=== PATIENT | female | born 1970 | race Caucasian/White ===

== ENCOUNTER 2017-04-30 04:55 | Inpatient (IN) | payer OTHER ==
[~2017-04-30] VITALS: Ht 177.8 cm; Wt 95.4 kg
[~2017-04-30 04:55] MED LIST: ATVUNK PO; BSP5 PO; CYAN3INJ SQ; LTHSR/300 PO; [UNRECOGNIZED DRUG - OTHER]
[2017-04-30] MEDS ORDERED: DiphenhydrAMINE HCL 50 MG/ML VIAL IV STA (05:21)
[2017-04-30] MEDS ORDERED: PROCHLORPERAZINE 5 MG/ML 2 ML VIAL IV STA (05:21)
[2017-04-30] MEDS ORDERED: SODIUM CHLORIDE 0.9% 1000ML 1,000 ML IV ONE (05:30)
[2017-04-30] MEDS ORDERED: PROCHLORPERAZINE 5 MG/ML 2 ML VIAL ONE (05:36)
[2017-04-30] MEDS ORDERED: DiphenhydrAMINE HCL 50 MG/ML VIAL ONE (05:36)
[2017-04-30] MEDS ORDERED: CYNI1000 PO (05:53)
[2017-04-30] MEDS ORDERED: BUSP-8 PO (05:53)
[2017-04-30] MEDS ORDERED: BUPR-83 PO (05:54)
[2017-04-30] MEDS ORDERED: GABA-113 PO (05:54)
[2017-04-30 06:11] LABS: BASO % 0.3 %; BASO ABS # 0.02 K/uL (0-0.2); COMPLETE YES; EOS % 0.1 %; IG% 0.3 %; LYMPH % 4.9 %; LYMPH ABS # 0.36 K/uL (1.2-3.4); MEAN CELL VOLUME 89.8 fL (80-100); MEAN CORPUSCULAR HEMOGLOBIN 30.2 pg (25-34); MEAN CORPUSCULAR HGB CONC 33.6 g/dl (32-36); MEAN PLATELET VOLUME 10.2 fL (7.4-10.4); NEUT % 90.4 %; PLATELET COUNT 260 K/uL (130-400); WHITE BLOOD COUNT 7.34 K/uL (4.8-10.8)
--- NOTE | 2017-04-30 06:28 | EMERGENCY ROOM VISIT NOTE ---
ED Visit Note First contact with patient: 05:06 I did evaluate and examine this patient myself. I did guide management for the patient. I agree with the APC's assessment as discussed. Please see the APC's dictation for further details. I did independently review the CT scan of the abdomen and pelvis and blood work.
[2017-04-30 06:30] LABS: CALCIUM 8.6 mg/dl (8.5-10.1); CREATININE 0.88 mg/dl (0.60-1.20); POTASSIUM 2.9 mmol/L (3.5-5.1)
[2017-04-30 06:33] LABS: ALB/GLOB RATIO 0.6 (0.9-2)
[2017-04-30] MEDS ORDERED: POTASSIUM CHLORIDE 10 MEQ / 100ML WTR IV STA (06:36)
--- NOTE | 2017-04-30 07:16 | DIAGNOSTIC IMAGING REPORT ---
CT SCAN OF THE ABDOMEN AND PELVIS WITHOUT CONTRAST CLINICAL HISTORY: Severe abdominal pain. Nausea. Vomiting. COMPARISON STUDY: No previous studies for comparison. TECHNIQUE: CT scan of the abdomen and pelvis was performed from the lung bases to the proximal femurs. Images are reviewed in the axial, sagittal, and coronal planes. IV contrast was not administered for this examination. A dose lowering technique was utilized adhering to the principles of ALARA. CT DOSE: 805.78 mGy.cm FINDINGS: Lower chest: There are postsurgical changes relating to the stomach Liver: The unenhanced liver is normal in size, contour, and attenuation. There is no intrahepatic biliary ductal dilatation. Gallbladder: Cholelithiasis Spleen: The spleen is mildly enlarged measuring 12 cm Pancreas: Unremarkable. Adrenal glands: Unremarkable. Kidneys: No renal, ureteral, or bladder calculi are visualized. Each kidney demonstrates an extrarenal pelvis. Bowel: There are no transition zones indicate bowel obstruction. There is no acute diverticulitis. There is no evidence of acute appendicitis. Peritoneum: There is trace free fluid in the pelvis likely physiologic no free air is visualized. There are several fat-containing ventral hernias. Vasculature: The abdominal aorta is normal in course and caliber. Adenopathy: None. Pelvic viscera: The bladder, and pelvic viscera are unremarkable. Skeletal structures: No destructive osseous lesions are seen. IMPRESSION: 1. Mild splenomegaly 2. No renal, ureteral, or bladder calculi identified 3. No evidence of bowel obstruction. No evidence of free air 4. No evidence of acute appendicitis. No evidence of acute diverticulitis 5. Cholelithiasis 6. Fat-containing ventral hernias 7. Postsurgical changes of a gastric bypass and Babs-en-Y anastomosis Electronically signed by: Handy Dumas M.D. 04/30/2017 7:15 AM Dictated Date/Time: 04/30/2017 6:42 AM
--- NOTE | 2017-04-30 07:21 | EMERGENCY ROOM VISIT NOTE ---
History First contact with patient: 05:06 Chief Complaint: ABDOMINAL PAIN Stated Complaint: ABDOMINAL PAIN Nursing Triage Summary: Abd pain. Dry heeves. History of Present Illness The patient is a 46 year old female who presents to the Emergency Room via ALS with complaints of abdominal pain and dry heaving. The patient has a reported history of gastric bypass. She evidently ate food that was high in fat last night and has developed belly pain with belching. Because of her gastric bypass she does not vomit. She has a lot of gas pain and rates her discomfort a 10/10. The pain is generalized and not in a distinct location. She did have an ultrasound of her gallbladder performed at [facility] roughly 3 months ago that was unremarkable. The patient has not had anything over-the- counter for her symptoms. Review of Systems More than 10 systems were reviewed and otherwise negative with the exception of history of present illness. Past Medical/Surgical History Past medical history of bipolar disorder, migraines, neuropathy, gastric bypass in May 2002 Family History Family history of cardiac disease Social History Smoking Status: Never Smoker Current/Historical Medications Scheduled Bupropion (Wellbutrin), 1 TAB PO BID Buspirone Hcl (Buspirone Hcl), 10 MG PO TID Cyanocobalamin (Cyanocobalamin), 1,000 MCG PO MONTHLY Gabapentin (Neurontin), 1 CAP PO TID Allergies Coded Allergies: No Known Allergies (Verified , NONE, 04/30/17) Physical Exam Vital Signs Date Time Temp Pulse Resp B/P (MAP) Pulse Ox O2 Delivery O2 Flow Rate FiO2 04/30/17 06:33 36.5 92 124/79 99 Room Air 04/30/17 05:01 36.6 70 24 124/72 100 Room Air Physical Exam VITALS: Vitals are noted on the nurse's note and reviewed by myself. Vital signs stable. GENERAL: Ill-appearing female who is moaning in pain and is mildly cooperative with examination due to actively dry heaving HEART: Regular rate and rhythm without murmurs gallops or rubs. LUNGS: Clear to auscultation bilaterally without wheezes, rales or rhonchi. No retractions or accessory muscle use. ABDOMEN: Positive normal bowel sounds x 4. Soft with diffuse tenderness. No distinct point tenderness was appreciated MUSCULOSKELETAL: No muscle atrophy, erythema, or edema noted. Full range of motion without joint tenderness in all extremities. Medical Decision & Procedures ER Provider Diagnostic Interpretation: Preliminary Findings Only See Final Report For Complete Findings CT ABDOMEN & PELVIS: Cholelithiasis-numerous tiny calcified gallstone sitting dependently within a distended gallbladder. No pericholecystic inflammatory changes. Status post remote gastric bypass surgery. No acute complications. Prominent left greater than right extrarenal pelvises. No nephrolithiasis, urolithiasis or hydronephrosis bilaterally. Small amount of stool in the rectum without inflammatory change. No acute inflammatory process or bowel obstruction. Normal appendix. Small midline supraumbilical ventral hernia containing omental fat. Just inferiorly there is also a widemouthed supraumbilical hernia. Very trace free fluid adjacent to the right aspect of the uterus may be physiologic. Laboratory Results 04/30/17 05:55 Red Blood Count 4.90, Mean Corpuscular Volume 89.8, Mean Corpuscular Hemoglobin 30.2, Mean Corpuscular Hemoglobin Concent 33.6, Mean Platelet Volume 10.2, Neutrophils (%) (Auto) 90.4, Lymphocytes (%) (Auto) 4.9, Monocytes (%) (Auto) 4.0, Eosinophils (%) (Auto) 0.1, Basophils (%) (Auto) 0.3, Neutrophils # (Auto) 6.64, Lymphocytes # (Auto) 0.36, Monocytes # (Auto) 0.29, Eosinophils # (Auto) 0.01, Basophils # (Auto) 0.02 04/30/17 05:55 Test 04/30/17 05:55 White Blood Count 7.34 K/uL (4.8-10.8) Red Blood Count 4.90 M/uL (4.2-5.4) Hemoglobin 14.8 g/dL (12.0-16.0) Hematocrit 44.0 % (37-47) Mean Corpuscular Volume 89.8 fL (80-100) Mean Corpuscular Hemoglobin 30.2 pg (25-34) Mean Corpuscular Hemoglobin Concent 33.6 g/dl (32-36) Platelet Count 260 K/uL (130-400) Mean Platelet Volume 10.2 fL (7.4-10.4) Neutrophils (%) (Auto) 90.4 % Lymphocytes (%) (Auto) 4.9 % Monocytes (%) (Auto) 4.0 % Eosinophils (%) (Auto) 0.1 % Basophils (%) (Auto) 0.3 % Neutrophils # (Auto) 6.64 K/uL (1.4-6.5) Lymphocytes # (Auto) 0.36 K/uL (1.2-3.4) Monocytes # (Auto) 0.29 K/uL (0.11-0.59) Eosinophils # (Auto) 0.01 K/uL (0-0.5) Basophils # (Auto) 0.02 K/uL (0-0.2) RDW Standard Deviation 47.2 fL (36.4-46.3) RDW Coefficient of Variation 14.4 % (11.5-14.5) Immature Granulocyte % (Auto) 0.3 % Immature Granulocyte # (Auto) 0.02 K/uL (0.00-0.02) Anion Gap 8.0 mmol/L (3-11) Est Creatinine Clear Calc Drug Dose 97.8 ml/min Estimated GFR () 90.0 Estimated GFR (Non- 77.7 BUN/Creatinine Ratio 6.0 (10-20) Calcium Level 8.6 mg/dl (8.5-10.1) Magnesium Level 2.0 mg/dl (1.8-2.4) Total Bilirubin 2.4 mg/dl (0.2-1) Aspartate Amino Transf (AST/SGOT) 254 U/L (15-37) Alanine Aminotransferase (ALT/SGPT) 101 U/L (12-78) Alkaline Phosphatase 801 U/L (45-117) Total Protein 7.4 gm/dl (6.4-8.2) Albumin 2.7 gm/dl (3.4-5.0) Globulin 4.7 gm/dl (2.5-4.0) Albumin/Globulin Ratio 0.6 (0.9-2) Lipase 75 U/L (73-393) [place] Level < 0.2 mMOL/L (0.6-1.2) Ethyl Alcohol mg/dL < 3.0 mg/dl (0-3) Medications Administered Medications (Trade) Dose Ordered Sig/Sandy Route Start Time Stop Time Status Last Admin Dose Admin Diphenhydramine HCl (Benadryl Inj) 50 mg NOW STAT IV 04/30/17 05:21 04/30/17 05:24 DC 04/30/17 05:39 50 MG Prochlorperazine Edisylate (Compazine Inj) 10 mg NOW STAT IV 04/30/17 05:21 04/30/17 05:24 DC 04/30/17 05:39 10 MG Sodium Chloride 1,000 ml @ 999 mls/hr Q1H1M ONCE IV 04/30/17 05:30 04/30/17 06:30 DC 04/30/17 05:40 999 MLS/HR Potassium Chloride (Kcl 10 Meq / Wtr) 10 meq NOW STAT IV 04/30/17 06:36 04/30/17 06:37 DC 04/30/17 06:44 10 MEQ ED Course Physical exam and history were performed. Nursing notes, EMR, and Medication List were personally reviewed. Patient appears to have abdominal pain with nausea. She is actively dry heaving upon my presentation to the room. The patient is with some abdominal tenderness but exam is somewhat limited secondary to the patient's condition. IV access was established and labs were obtained. The patient was given 10 mg IV Compazine and 50 mg IV Benadryl for symptomatic care. Because of her abdominal pain and did elect to perform a CT scan without contrast. The patient's blood work is as above and was reviewed. She does not have a significantly elevated white blood cell count, gross anemia, bandemia, or significant electrolyte imbalance. Her liver function tests are markedly elevated when compared to [facility] outpatient labs performed in January 2017. At that time her AST was 18, bilirubin was 0.5, and ALT was 13. Today her LFTs are significantly elevated. Her CT scan is as above and shows multiple gallstones with enlarged gallbladder. There is no distinct cholecystitis based on CT criteria. On reevaluation the patient was significantly improved from a comfort standpoint after Benadryl and Compazine. She was able to lay on her side and try to rest. I discussed options of care with the patient who does not feel well home. Clinically I suspect that she has cholecystitis, however she may need ERCP/MRCP to confirm this. I discussed the case with the on-call [facility] hospitalist, who agreed to evaluate the patient here in the ER. Please see their dictation for further patient course, plan, and disposition. The chart was completed utilizing [employer] Voice Recognition Software. Grammatical errors, random word insertions, pronoun errors, and incomplete sentences are an occasional consequence of this system due to software limitations, ambient noise, and hardware issues. Any formal questions or concerns about the content, text, or information contained within the body of this dictation should be directly addressed to the provider for clarification. . Medical Decision Differential diagnosis: Etiologies such as appendicitis, diverticulitis, PUD, biliary pathology, UTI, pancreatitis, obstruction, mesenteric ischemia, aortic pathology, infections, inflammatory bowel disease, renal colic, as well as others were entertained. Impression Primary Impression: Abdominal pain Additional Impressions: Dry heaves Elevated LFTs Biliary colic Gallstones Departure Information Referrals Ventura Burton M.D. (PCP) Patient Instructions My [facility] Problem Qualifiers
[2017-04-30 08:18] VITALS: O2SAT 99; Ht 177.8 cm; Wt 95.4 kg
[2017-04-30 08:25] LABS: URINE APPEARANCE CLEAR (CLEAR); URINE BILIRUBIN NEG (NEG); URINE COLOR YELLOW; URINE NITRITE NEG (NEG); URINE PH 8.5 (4.5-7.5); URINE SPECIFIC GRAVITY 1.012 (1.000-1.030); UROBILINOGEN NEG (NEG); ZZUR CULT IF INDIC CLEAN CATCH NO
[2017-04-30 08:44] LABS: BENZODIAZEPINE, URINE NEG (NEG); COCAINE,URINE NEG (NEG); PHENCYCLIDINE, URINE NEG (NEG)
[2017-04-30] MEDS ORDERED: POTASSIUM CHLORIDE 10 MEQ TABCR PO STA (08:55)
[2017-04-30] MEDS ORDERED: ONDANSETRON INJ 2 MG/ML 2 ML VIAL IV PRN (09:00)
[2017-04-30] MEDS ORDERED: ACETAMINOPHEN 325 MG TAB PO PRN (09:00)
[2017-04-30] MEDS ORDERED: HYDROmorphone INJ 0.5 MG/0.5 ML SYR IV PRN (09:00)
[2017-04-30 09:03] LABS: MANUAL MICROSCOPIC REQUIRED? NO; REVIEW REQ? NO
--- NOTE | 2017-04-30 09:51 | HISTORY & PHYSICAL EXAMINATION ---
DATE OF ADMISSION: 04/30/2017 CHIEF COMPLAINT: Abdominal pain and dry heaves. HISTORY OF PRESENT ILLNESS: This 46-year-old female with past medical history significant for obesity, status post gastric bypass, bipolar disorder, osteoarthritis, vitamin D deficiency, vitamin B12 deficiency, edema, iron deficiency, polyneuropathy, GERD, presents with abdominal pain. The patient says pain started yesterday and is about 6/10 in severity. No radiation.Has dry heaves. Currently, the patient says she is not feeling well. She also states she lost her teeth because of her malnutrition from her gastric bypass. She says she is not up to date with her vitamin shots and says she is feeling weak and tired since about a year. Denies any diarrhea or constipation. No blood in the stools, no black stools. Normal bladder movements. No blood in the urine or burning with micturition. No chest pain, no shortness of breath, but she gets some discomfort in the chest and short of breath when she is having squeezing pain in her abdomen. No skin rash, no headaches. No blurred visions. ALLERGIES: Ferrous sulfate. PAST MEDICAL HISTORY: As mentioned above. PAST SURGICAL HISTORY: Arthroplasty, EGD, laparoscopic gastric bypass surgery, revision of foot bones and tendons in right foot. MEDICATIONS: The patient is on bupropion extended release 150 mg 1 tablet p.o. b.i.d., tramadol 50 mg every 6 hours p.r.n., Lasix 20 mg daily as needed for edema, gabapentin 300 mg p.o. t.i.d., nystatin apply to affected areas, albuterol 2 puffs 4 times daily, Zofran 4 mg every 6 hours p.r.n., cyanocobalamin 1000 mcg injection once a month. FAMILY HISTORY: Significant for maternal grandmother has arthritis. Mother has arthritis. Father has diabetes and heart disorder. Mother has diabetes and bipolar. Sister has obesity. SOCIAL HISTORY: She is single. Never smoked. No alcohol use. No drug use. REVIEW OF SYMPTOMS: As per HPI. Rest of review of systems negative. PHYSICAL EXAMINATION: GENERAL: The patient is of moderate build, not in distress. VITAL SIGNS: Temperature 36.5, pulse 92, respiratory rate 124/79, oxygen 99% on room air. HEAD, EYES, EARS, NOSE, AND THROAT: No pallor, no icterus. Pupils equal, round, and reactive. Oral mucosa absent teeth, somewhat dry. NECK: No JVD, no neck masses, no carotid bruits. CARDIOVASCULAR: S1, S2 heard, regular rate and rhythm, no murmur, no gallop. RESPIRATORY SYSTEM: No accessory muscle use. No wheezing, no crackles. Normal bowel sounds. ABDOMEN: Soft, bowel sounds present. Mild diffuse discomfort. No guarding, no rigidity. No distention. CENTRAL NERVOUS SYSTEM: Cranial nerves II-XII grossly intact. Nonfocal. EXTREMITIES: No edema, no erythema. LABORATORIES: Sodium 138, potassium 2.9, chloride 104, bicarbonate 26, BUN 5, creatinine 0.8, serum glucose 118, calcium 8.6, magnesium 2, total bilirubin 2.4, AST 254, ALT 101, alkaline phosphatase 801, lipase 75. WBC 7.3, hemoglobin 14.8, hematocrit 44, platelets 260. Urinalysis pending. Urine tox screen was positive for marijuana. CT of the abdomen and pelvis shows mild splenomegaly, no renal, ureteral or bladder calculi identified. No evidence of bowel obstruction, no evidence of free air, no evidence of acute appendicitis. No evidence of acute diverticulitis, cholelithiasis, fat containing ventral hernias, postsurgical changes of gastric bypass on room air and anastomosis. ASSESSMENT AND PLAN: This is a 46-year-old female who presents with abdominal pain, nausea and elevated LFTs. 1. Abdominal pain with nausea and elevated LFTs. CAT scan showed gallstones. Alkaline phosphatase, ALT and AST and total bilirubin elevated which were normal on the labs done in January of this year. We will admit the patient to medical floor, n.p.o. except meds, IV fluids, IV antiemetics, IV pain medications, IV Protonix. . Will discuss with GI. Will plan for MRCP and also place a surgical consult and monitor on the medical floor. 2. Hypokalemia. We will replace. 3. Status post gastric bypass surgery. The patient is malnourished, vitamin deficiencies. We will check vitamin B12 levels and vitamin D levels. Advise for regular followup. 4. Bipolar. Continue bupropion. 5. Deep venous thrombosis prophylaxis. SCDs and TEDs for now. 6. Disposition: Admit to medical floor. Expect to discharge home and follow with the family doctor. LEVEL 1 FULL CODE. MTDD
[2017-04-30 10:00] VITALS: BP 123/82; PULSE 80; TEMP 37.4; O2SAT 97
--- NOTE | 2017-04-30 10:01 | DIAGNOSTIC IMAGING REPORT ---
ABDOMINAL ULTRASOUND, RIGHT UPPER QUADRANT HISTORY: GALL STONES. ELEVATED LFT. COMPARISON: Abdomen and pelvis CT 04/30/2017. FINDINGS: Pancreas: Obscured by overlying bowel gas. Liver: Unremarkable. Gallbladder: Multiple small gallstones. No gallbladder wall thickening. CBD: 5 mm. Right kidney: No hydronephrosis. IMPRESSION: 1. Cholelithiasis. No gallbladder wall thickening. 2. The pancreas is obscured by overlying bowel gas. Electronically signed by: Pa Smith M.D. 04/30/2017 10:00 AM Dictated Date/Time: 04/30/2017 9:55 AM
[2017-04-30] MEDS ORDERED: D5NSS + 20MEQ KCL 1,000 ML IV SCH (10:20)
--- NOTE | 2017-04-30 10:28 | Gastrointestinal Consultation ---
Gastrointestinal Consultation Date of Consultation: Apr 30, 2017 Attending Physician: Dave Consulting Physician: Vladislav Reason for Consultation: RUQ pain, gallstones, elevated LFTs History of Present Illness Patient is a 46 year old female w/ PMH significant for gastric bypass for obesity about 10 years ago and others listed below who presented to the ED for evaluation of upper abdominal pain, nausea, vomiting and diarrhea. She has not been feeling well for a while - she has not been following with GI nutrition and has not been taking any of her vitamins. She tells me she has had some weight loss, but cannot quantify how much. Yesterday, she became acutely ill, with abrupt onset and constant RUQ pain. Pain is sharp. no radiation of pain. Pain is associated with nausea and dry heaves. She had one episode of emesis. No hematemesis or coffee ground emesis. She does not that she had a bloody nose yesterday, which she typically does not have. No fever, chills, chest pain, SOB, black/bloody stools. CT 04/30/17: Mild splenomegaly No renal, ureteral, or bladder calculi identified No evidence of bowel obstruction. No evidence of free air No evidence of acute appendicitis. No evidence of acute diverticulitis Cholelithiasis Fat- containing ventral hernias Postsurgical changes of a gastric bypass and Babs-en- Y anastomosis RUQ US 04/30/17: Cholelithiasis. No gallbladder wall thickening. The pancreas is obscured by overlying bowel gas. Past Medical/Surgical History Medical Problems: (1) Abdominal pain Status: Acute (2) Biliary colic Status: Acute (3) Dry heaves Status: Acute (4) Elevated LFTs Status: Acute (5) Gallstones Status: Acute Past Medical History: bipolar disorder, osteoarthritis, vitamin D deficiency, vitamin B12 deficiency, edema, iron deficiency, polyneuropathy, GERD, gastric bypass for obesity Past Surgical History: EGD, laparoscopic gastric bypass surgery Social History Smoking Status: Never Smoker Allergies Coded Allergies: No Known Allergies (Verified , NONE, 04/30/17) Current Medications Home Meds and Scripts Medications Dose Route/Sig Max Daily Dose Days Date Category Neurontin (Gabapentin) Unknown Strength Cap 1 Cap PO TID 04/30/17 Reported Wellbutrin (Bupropion HCl) Unknown Strength Tab 1 Tab PO BID 04/30/17 Reported Cyanocobalamin 1,000 Mcg/Ml Inj 1,000 Mcg PO MONTHLY 04/30/17 Reported Buspirone Hcl 10 Mg Tab 10 Mg PO TID 04/30/17 Reported Review of Systems Constitutional: No fever, No chills Respiratory: No cough, No shortness of breath Cardiac: No chest pain, No edema Abdomen: + pain, + nausea, + diarrhea, No vomiting, No constipation, No GI bleeding, No dysphagia Physical Exam Date Time Temp Pulse Resp B/P (MAP) Pulse Ox O2 Delivery O2 Flow Rate FiO2 04/30/17 10:00 97 Room Air 04/30/17 10:00 37.4 80 16 123/82 (96) 97 Room Air 04/30/17 09:18 84 20 129/87 97 04/30/17 08:30 84 16 130/96 96 Room Air 04/30/17 08:18 99 Room Air 04/30/17 06:33 36.5 92 124/79 99 Room Air 04/30/17 05:01 36.6 70 24 124/72 100 Room Air General Appearance: + mild distress Eyes: PERRL ENT: hearing grossly normal Neck: supple Respiratory/Chest: lungs clear, normal breath sounds Cardiovascular: regular rate, rhythm, no edema Abdomen: normal bowel sounds, soft, no organomegaly, no pulsatile mass, + tenderness (generalized tenderness) Neurologic/Psych: alert, normal mood/affect, oriented x 3 Skin: normal color, warm/dry Laboratory Results Last 24 Hours Test 04/30/17 05:55 04/30/17 08:00 White Blood Count 7.34 K/uL Red Blood Count 4.90 M/uL Hemoglobin 14.8 g/dL Hematocrit 44.0 % Mean Corpuscular Volume 89.8 fL Mean Corpuscular Hemoglobin 30.2 pg Mean Corpuscular Hemoglobin Concent 33.6 g/dl Platelet Count 260 K/uL Mean Platelet Volume 10.2 fL Neutrophils (%) (Auto) 90.4 % Lymphocytes (%) (Auto) 4.9 % Monocytes (%) (Auto) 4.0 % Eosinophils (%) (Auto) 0.1 % Basophils (%) (Auto) 0.3 % Neutrophils # (Auto) 6.64 K/uL Lymphocytes # (Auto) 0.36 K/uL Monocytes # (Auto) 0.29 K/uL Eosinophils # (Auto) 0.01 K/uL Basophils # (Auto) 0.02 K/uL RDW Standard Deviation 47.2 fL RDW Coefficient of Variation 14.4 % Immature Granulocyte % (Auto) 0.3 % Immature Granulocyte # (Auto) 0.02 K/uL Sodium Level 138 mmol/L Potassium Level 2.9 mmol/L Chloride Level 104 mmol/L Carbon Dioxide Level 26 mmol/L Anion Gap 8.0 mmol/L Blood Urea Nitrogen 5 mg/dl Creatinine 0.88 mg/dl Est Creatinine Clear Calc Drug Dose 97.8 ml/min Estimated GFR () 90.0 Estimated GFR (Non- 77.7 BUN/Creatinine Ratio 6.0 Random Glucose 118 mg/dl Calcium Level 8.6 mg/dl Magnesium Level 2.0 mg/dl Total Bilirubin 2.4 mg/dl Aspartate Amino Transf (AST/SGOT) 254 U/L Alanine Aminotransferase (ALT/SGPT) 101 U/L Alkaline Phosphatase 801 U/L Total Protein 7.4 gm/dl Albumin 2.7 gm/dl Globulin 4.7 gm/dl Albumin/Globulin Ratio 0.6 Lipase 75 U/L [place] Level < 0.2 mMOL/L Ethyl Alcohol mg/dL < 3.0 mg/dl Urine Color YELLOW Urine Appearance CLEAR Urine pH 8.5 Urine Specific [place] 1.012 Urine Protein NEG Urine Glucose (UA) NEG Urine Ketones NEG Urine Occult Blood NEG Urine Nitrite NEG Urine Bilirubin NEG Urine Urobilinogen NEG Urine Leukocyte Esterase NEG Urine Opiates Screen NEG Urine Methadone, Qualitative NEG Urine Barbiturates NEG Urine Phencyclidine (PCP) Level NEG Ur Amphetamine/Methamphetamine NEG MDMA (Ecstasy) Screen NEG Urine Benzodiazepines Screen NEG Urine Cocaine Metabolite NEG Urine Marijuana (THC) POS Impression Patient is a 46 year old female with abrupt onset upper abdominal pain after a high fat meal last night - RUQ sharp, constant, no radiation of pain. Associated with nausea and dry heaves. There was on episode of emesis no evidence of blood. She tells me she has noted decreased appetite and weight loss of recent and has not been following with GI nutrition. CT scan and US suggestive of gallstones without any biliary dilation. LFTs are acutely elevated in comparison to outpatient values - will need MRCP for more detailed evaluation. Clinical concern for choledocholithiasis Plan - NPO - IVF for hydration - Anti-emetics PRN - Analgesia PRN - MRCP - may need ERCP - Broad spectrum ABX coverage for cholangitis - Consult surgery to evaluate for cholecystectomy - Repletion of electrolytes per primary team GI to follow. Please call with any questions or concerns. I have seen , examined and agree with the plan as outlined by MEENA Sauceda as above. -Post Babs Y gastric bypass with CBD stone, will require transfer
[2017-04-30] MEDS: ALBUTEROL HFA 8 GM INHALER INH SCH ×3 (10:44→17:05)
[2017-04-30] MEDS: GABAPENTIN 300 MG CAP PO SCH ×2 (10:45→14:01)
[2017-04-30] MEDS: POTASSIUM CHLR 10 MEQ / WTR 10 MEQ in PREMIXED WATER 100 ML IV SCH ×2 (10:47→12:00)
[2017-04-30] MEDS ORDERED: PANTOprazole INJ 40 MG in SYRINGE 0 ML IV SCH (11:00)
--- NOTE | 2017-04-30 12:46 | DIAGNOSTIC IMAGING REPORT ---
MRCP HISTORY: GALL STONES. ELEVATE LFT. ABDOMINAL PAIN AND NAUSEA TECHNIQUE: MRCP of the abdomen was performed without contrast according to standard departmental protocol COMPARISON STUDY: Abdominal ultrasound and abdomen and pelvis CT 04/30/2017 FINDINGS: The gallbladder is mildly distended. No gallbladder wall thickening. Multiple tiny gallstones. There is a hypointense filling defect seen within the mid common bile duct. This measures 7 mm. This likely represents a common bile duct stone. However, the common bile duct is normal in caliber. No significant intrahepatic bile duct dilatation. No hepatic or splenic masses. The adrenal glands, pancreas, and kidneys are unremarkable. Prior gastric bypass. IMPRESSION: 1. A 7 mm filling defect within the mid common bile duct. This is consistent with a common bile duct stone. No associated bile duct dilatation. 2. Cholelithiasis. The gallbladder is mildly distended. Electronically signed by: Pa Smith M.D. 04/30/2017 12:45 PM Dictated Date/Time: 04/30/2017 12:40 PM
[2017-04-30] MEDS ORDERED: PIPERACILL/TAZOBAC CONSULT ACTIVE PRN (15:00)
[2017-04-30] MEDS ORDERED: PIPERACILL/TAZOBAC IV 4.5 GM in DEXTROSE 5% 100ML 100 ML IV ONE (15:00)
[2017-04-30 15:11] VITALS: BP 90/56; PULSE 84; TEMP 37.1; O2SAT 98
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
--- NOTE | 2017-04-30 16:20 | Discharge Instructions ---
Discharge Instructions Date of Service Apr 30, 2017. Admission Reason for Admission: Biliary Colic, Elevated Lfts Discharge Discharge Diagnosis / Problem: ABDOMINAL PAIN. ELEVATED LFT'S . CBD STONE Discharge Goals Goal(s): Decrease discomfort Activity Recommendations Activity Level: Up Ad Mirna . Additional Information Patient informed of condition: Yes Advance Directives: Yes DNR: No Level of Care: Other ([facility]) Communicable Disease: No Prognosis: Other (TRANSFERRING TO [facility]) Instructions / Follow-Up Instructions / Follow-Up FOLLOWUP PER [place] [facility] INSTRUCTIONS Current Hospital Diet Patient's current hospital diet: Discharge Diet Recommended Diet: N/A Pending Studies Studies pending at discharge: no Physician Orders On Transfer IV Therapy: IV D5NS +20KCL@125ML/HR IV ZOSYN IV ZOFRAN IV PROTONIX IV DILAUDID PRN Additional Orders: PLEASE CHECK MED RECONCILIATION FOR ACCURATE MEDICATION Medical Emergencies . Who to Call and When: Medical Emergencies: If at any time you feel your situation is an emergency, please call 911 immediately. . Non-Emergent Contact Non-Emergency issues call your: Primary Care Provider . . "Provider Documentation" section prepared by Raymond Acosta. . Core Measure Problem Core Measures: None
[2017-04-30 16:55] VITALS: BP 99/65; PULSE 75; TEMP 37.2; O2SAT 98
[2017-04-30 17:13] VITALS: BP 99/65; PULSE 75; TEMP 37.2; O2SAT 98
--- NOTE | 2017-04-30 17:58 | Discharge Summary ---
Discharge Summary Date of Service Apr 30, 2017. Discharge Summary Admission Date: Apr 30, 2017 at 08:55 Discharge Disposition: [facility] [place] [place] Principal Diagnosis: ABDOMINAL PAIN ELEVATED LFT'S CBD STONE Secondary Diagnoses/Problems: for obesity, status post gastric bypass, bipolar disorder, osteoarthritis, vitamin D deficiency, vitamin B12 deficiency, edema, iron deficiency, polyneuropathy, GERD Procedures: ct abd/pelvis: 1. Mild splenomegaly 2. No renal, ureteral, or bladder calculi identified 3. No evidence of bowel obstruction. No evidence of free air 4. No evidence of acute appendicitis. No evidence of acute diverticulitis 5. Cholelithiasis 6. Fat-containing ventral hernias 7. Postsurgical changes of a gastric bypass and Babs-en-Y anastomosis GALL BLADDER US: 1. Cholelithiasis. No gallbladder wall thickening. 2. The pancreas is obscured by overlying bowel gas. MRCP: 1. A 7 mm filling defect within the mid common bile duct. This is consistent with a common bile duct stone. No associated bile duct dilatation. 2. Cholelithiasis. The gallbladder is mildly distended. Consultations: GI surgery Medication Reconciliation Continued Medications: Bupropion (Wellbutrin) Unknown Strength Tab 1 TAB PO BID Cyanocobalamin (Cyanocobalamin) 1,000 Mcg/Ml Inj 1000 MCG PO MONTHLY Gabapentin (Neurontin) Unknown Strength Cap 1 CAP PO TID Admission Information HPI (per Admitting provider): : This 46-year-old female with past medical history significant for obesity, status post gastric bypass, bipolar disorder, osteoarthritis, vitamin D deficiency, vitamin B12 deficiency, edema, iron deficiency, polyneuropathy, GERD, presents with abdominal pain. The patient says pain started yesterday and is about 6/10 in severity. No radiation.Has dry heaves. Currently, the patient says she is not feeling well. She also states she lost her teeth because of her malnutrition from her gastric bypass. She says she is not up to date with her vitamin shots and says she is feeling weak and tired since about a year. Denies any diarrhea or constipation. No blood in the stools, no black stools. Normal bladder movements. No blood in the urine or burning with micturition. No chest pain, no shortness of breath, but she gets some discomfort in the chest and short of breath when she is having squeezing pain in her abdomen. No skin rash, no headaches. No blurred visions. Physical Exam (per Admitting): GENERAL: The patient is of moderate build, not in distress. VITAL SIGNS: Temperature 36.5, pulse 92, respiratory rate 124/79, oxygen 99% on room air. HEAD, EYES, EARS, NOSE, AND THROAT: No pallor, no icterus. Pupils equal, round, and reactive. Oral mucosa absent teeth, somewhat dry. NECK: No JVD, no neck masses, no carotid bruits. CARDIOVASCULAR: S1, S2 heard, regular rate and rhythm, no murmur, no gallop. RESPIRATORY SYSTEM: No accessory muscle use. No wheezing, no crackles. Normal bowel sounds. ABDOMEN: Soft, bowel sounds present. Mild diffuse discomfort. No guarding, no rigidity. No distention. CENTRAL NERVOUS SYSTEM: Cranial nerves II-XII grossly intact. Nonfocal. EXTREMITIES: No edema, no erythema. Hospital Course 46f was admitted for abdominal pain and nausea with elevated LFT's and ct scan showing gall stones. GI was consulted and recommended mrcp which showed 7mm CBD stone. As patient has hx of gastric bypass Gi recommended transfer to [place] for ERCP. Patient was accepted in transfer. Giovanny was admitted and was transferred on same day. A/P at admission: This is a 46-year-old female who presents with abdominal pain, nausea and elevated LFTs. 1. Abdominal pain with nausea and elevated LFTs. CAT scan showed gallstones. Alkaline phosphatase, ALT and AST and total bilirubin elevated which were normal on the labs done in January of this year. We will admit the patient to medical floor, n.p.o. except meds, IV fluids, IV antiemetics, IV pain medications, IV Protonix. . Will discuss with GI. Will plan for MRCP and also place a surgical consult and monitor on the medical floor. 2. Hypokalemia. We will replace. 3. Status post gastric bypass surgery. The patient is malnourished, vitamin deficiencies. We will check vitamin B12 levels and vitamin D levels. Advise for regular followup. 4. Bipolar. Continue bupropion. 5. Deep venous thrombosis prophylaxis. SCDs and TEDs for now. 6. Disposition: Admit to medical floor. Expect to discharge home and follow with the family doctor. LEVEL 1 FULL CODE. Total time spent on discharge = 45minutes This includes examination of the patient, discharge planning, medication reconciliation, and communication with other providers. Discharge Instructions Discharge Instructions Date of Service Apr 30, 2017. Admission Reason for Admission: Biliary Colic, Elevated Lfts Discharge Discharge Diagnosis / Problem: ABDOMINAL PAIN. ELEVATED LFT'S . CBD STONE Discharge Goals Goal(s): Decrease discomfort Activity Recommendations Activity Level: Up Ad Mirna . Additional Information Patient informed of condition: Yes Advance Directives: Yes DNR: No Level of Care: Other ([facility]) Communicable Disease: No Prognosis: Other (TRANSFERRING TO [facility]) Instructions / Follow-Up Instructions / Follow-Up FOLLOWUP PER [place] INSTRUCTIONS Current Hospital Diet Patient's current hospital diet: Discharge Diet Recommended Diet: N/A Pending Studies Studies pending at discharge: no Physician Orders On Transfer IV Therapy: IV D5NS +20KCL@125ML/HR IV ZOSYN IV ZOFRAN IV PROTONIX IV DILAUDID PRN Additional Orders: PLEASE CHECK MED RECONCILIATION FOR ACCURATE MEDICATION Medical Emergencies . Who to Call and When: Medical Emergencies: If at any time you feel your situation is an emergency, please call 911 immediately. . Non-Emergent Contact Non-Emergency issues call your: Primary Care Provider . .
[2017-04-30] MEDS ORDERED: PIPERACILL/TAZOBAC IV 3.375 GM in DEXTROSE 5% 100ML IV SCH (20:00)
[2017-05-01] MEDS ORDERED: INDOMETHACIN 50 MG SUPP PR SCH (06:30)
== END 2017-04-30 18:00 | disposition short-term general hospital (02) | DRG 445 ==
LOC: EDBD 04:55 → C.EDB 04:56 → C.MSN 08:55 → ENRESERV 09:07
PROVIDERS: ADMIT Internal Medicine; ATTEND Internal Medicine
DX: K80.70 Calculus of gallbladder and bile duct without cholecystitis without obstruction (principal); K91.2 Postsurgical malabsorption, not elsewhere classified; K95.89 Other complications of other bariatric procedure; Y83.2 Surgical operation with anastomosis, bypass or graft as the cause of abnormal reaction of the patient, or of later complication, without mention of misadventure at the time of the procedure; E87.6 Hypokalemia; R94.5 Abnormal results of liver function studies; E55.9 Vitamin D deficiency, unspecified; E53.8 Deficiency of other specified B group vitamins; E61.1 Iron deficiency; R60.0 Localized edema; K21.9 Gastro-esophageal reflux disease without esophagitis; G62.9 Polyneuropathy, unspecified; K08.199 Complete loss of teeth due to other specified cause, unspecified class; M19.90 Unspecified osteoarthritis, unspecified site; F31.9 Bipolar disorder, unspecified; E66.9 Obesity, unspecified; Z68.30 Body mass index [BMI] 30.0-30.9, adult; Z98.84 Bariatric surgery status; Z96.659 Presence of unspecified artificial knee joint; Z79.899 Other long term (current) drug therapy